=== PATIENT | female | born 1970 | race Caucasian/White ===

== ENCOUNTER 2018-12-06 14:45 | Inpatient (IN) | payer MEDICAID ==
[~2018-12-06] VITALS: Ht 165.1 cm; Wt 71.7 kg
[~2018-12-06 14:45] MED LIST: GABA-531 PO; LURA40 PO; TOPI25 PO
[2018-12-06] MEDS ORDERED: HALOPERIDOL 5 MG TABLET PO PRN (18:15)
[2018-12-06 18:17] VITALS: BP 100/65
[2018-12-06] MEDS ORDERED: ACETAMINOPHEN 325 MG TABLET PO PRN (18:45)
[2018-12-06] MEDS ORDERED: DOCUSATE SODIUM 100 MG CAPSULE PO PRN (18:45)
[2018-12-06] MEDS ORDERED: IBUPROFEN 400 MG TABLET PO PRN (18:45)
[2018-12-06] MEDS ORDERED: CloNIDine HCL 0.1 MG TABLET PO PRN (18:45)
[2018-12-06] MEDS ORDERED: LOPERAMIDE HCL 2 MG CAPSULE PO PRN (18:45)
[2018-12-06] MEDS ORDERED: ONDANSETRON HCL 4 MG TABLET PO PRN (18:45)
[2018-12-06] MEDS ORDERED: NICOTINE 14 MG/24 HOUR PATCH TD PRN (18:45)
[2018-12-06] MEDS ORDERED: PETROLATUM,WHITE 28 GM JELLY TP PRN (18:45)
[2018-12-06] MEDS ORDERED: MAG HYDROX/AL HYDROX/SIMETH ES 30 ML SUSPENSION UDCUP PO PRN (18:45)
[2018-12-06] MEDS ORDERED: ALBUTEROL SULFATE HFA 90 MCG/PUFF 8 GM INHALER IH PRN (18:45)
[2018-12-06] MEDS ORDERED: GuaiFENesin/D-METHORPHAN [SUGAR-FREE] 200-20MG/10 ML SYRUP UDCUP PO PRN (18:45)
[2018-12-06 18:46] VITALS: BP 111/60
[2018-12-06] MEDS: OLANZapine 5 MG TABLET PO SCH (21:01)
[2018-12-06] MEDS: GABAPENTIN 400 MG CAPSULE PO SCH (21:02)
[2018-12-06] MEDS: ZOLPIDEM TARTRATE 10 MG TABLET PO PRN (21:31)
[2018-12-07 01:02] VITALS: BP 130/78
[2018-12-07 08:21] VITALS: BP 100/55
[2018-12-07 08:25] LABS: BASOPHILS % (AUTO) 0.5 % (0.0-2.0); EOSINOPHILS % (AUTO) 3.5 % (1.0-6.0); HEMOGLOBIN 14.4 g/dL (12.0-16.0); LYMPHOCYTES # (AUTO) 3.4 K/uL (1.0-4.8); LYMPHOCYTES % (AUTO) 50.1 % (22.0-44.0); MEAN CORPUSCULAR HEMOGLOBIN 31.5 pg (26.0-34.0); MEAN CORPUSCULAR HGB CONC 32.7 G/dL (31.0-37.0); MEAN CORPUSCULAR VOLUME 96 fL (80-100); MONOCYTES # (AUTO) 0.4 K/uL (0.1-1.0); MONOCYTES % (AUTO) 6.1 % (2.0-9.0); NEUTROPHILS # (AUTO) 2.7 K/uL (1.8-7.7); NEUTROPHILS % (AUTO) 39.8 % (40.0-70.0); PLATELET COUNT (AUTO) 266 K/uL (150-450); RED BLOOD CELL COUNT(AUTO) 4.57 MIL/uL (4.00-5.20); RED CELL DISTRIBUTION WIDTH 14.1 % (11.5-14.5)
[2018-12-07 08:56] LABS: HEMOGLOBIN A1C 6.2 % (4.5-6.2)
[2018-12-07] MEDS: GABAPENTIN 400 MG CAPSULE PO SCH ×3 (09:00→16:15)
[2018-12-07 09:03] LABS: ANION GAP 6 mmol/L (8-16); CARBON DIOXIDE 30 mmol/L (22-29); CHLORIDE 105 mmol/L (98-107); CREATININE 0.84 mg/dL (0.60-1.30); GLUCOSE,RANDOM 114 mg/dL (70-110); POTASSIUM 4.7 mmol/L (3.5-5.1); SODIUM SERUM 141 mmol/L (136-145); UREA NITROGEN, BLOOD 23 mg/dL (7-18)
[2018-12-07 09:04] LABS: ALANINE AMINOTRANSFERASE 31 U/L (12-78); ALBUMIN 3.2 g/dL (3.4-5.0); ALKALINE PHOSPHATASE 81 U/L (46-116); ASPARTATE AMINOTRANSFERASE 16 U/L (15-37); BILIRUBIN,TOTAL 0.1 mg/dL (0.1-1.0); CALCIUM, TOTAL 8.7 mg/dL (8.8-10.5); CHOL/HDL RATIO 3.3 (3.9-5.7); CHOLESTEROL 154 mg/dL (131-200); GLOMERULAR FILTR. RATE CALC > 60 mL/min (>60); HCG,QUANTITATIVE 2 mIU/mL (0-6); HDL CHOLESTEROL 46 mg/dL (40-60); LDL CHOL (CALC.) 74 mg/dL (0-130); THYROID STIMULATING HORMONE 1.34 uIU/mL (0.36-3.74); TOTAL PROTEIN, SERUM 6.4 g/dL (6.4-8.2); TRIGLYCERIDES 171 mg/dL (15-150)
[2018-12-07] MEDS: OLANZapine 5 MG TABLET PO SCH ×2 (09:09→16:15)
[2018-12-07 13:30] VITALS: BP 108/70
[2018-12-07] MEDS: LORazepam 2 MG TABLET PO PRN (13:48)
[2018-12-07] MEDS: TOPIRAMATE 25 MG TABLET PO SCH (20:25)
[2018-12-08 02:21] VITALS: BP 99/57
[2018-12-08 08:20] VITALS: BP 110/72
[2018-12-08] MEDS: OLANZapine 5 MG TABLET PO SCH (08:55)
[2018-12-08] MEDS: GABAPENTIN 400 MG CAPSULE PO SCH ×3 (08:55→16:35)
[2018-12-08] MEDS: LORazepam 2 MG TABLET PO PRN (08:59)
[2018-12-08] MEDS: MAGNESIUM HYDROXIDE SUSPENSION 30 ML UDCUP PO PRN (12:31)
[2018-12-08] MEDS: OLANZapine 10 MG TABLET PO SCH (16:35)
[2018-12-08 20:19] VITALS: BP 106/72
[2018-12-08] MEDS: TOPIRAMATE 25 MG TABLET PO SCH (20:27)
[2018-12-09 04:12] VITALS: BP 101/61
[2018-12-09] MEDS: GABAPENTIN 400 MG CAPSULE PO SCH ×3 (08:26→16:16)
[2018-12-09] MEDS: OLANZapine 10 MG TABLET PO SCH (08:26)
[2018-12-09] MEDS: LORazepam 2 MG TABLET PO PRN ×2 (08:29→18:39)
[2018-12-09] MEDS: MUPIROCIN CALCIUM 2% 22 GM OINTMENT NASAL SCH ×2 (12:31→16:16)
[2018-12-09] MEDS: OLANZapine 7.5 MG TABLET PO SCH (16:16)
[2018-12-09 16:27] VITALS: BP 115/71
[2018-12-09] MEDS: TOPIRAMATE 25 MG TABLET PO SCH (20:22)
[2018-12-10 04:26] VITALS: BP 109/69
[2018-12-10 08:51] LABS: APPEARANCE,URINE CLEAR (CLEAR); BILIRUBIN,URINE NEGATIVE (NEGATIVE); GLUCOSE, URINE (UA) NEGATIVE (NEGATIVE); KETONES,URINE NEGATIVE (NEGATIVE); LEUKOCYTE ESTERASE ,URINE NEGATIVE (NEGATIVE); NITRATE,URINE NEGATIVE (NEGATIVE); OCCULT BLOOD,URINE NEGATIVE (NEGATIVE); PROTEIN,URINE NEGATIVE (NEGATIVE); UROBILINOGEN,URINE 0.2 mg/dL (<=1.0)
[2018-12-10] MEDS: MUPIROCIN CALCIUM 2% 22 GM OINTMENT NASAL SCH ×2 (08:56→17:59)
[2018-12-10 08:57] LABS: AMPHET/METH SCREEN,URINE NEGATIVE (NEGATIVE); BARBITURATE SCREEN, URINE NEGATIVE (NEGATIVE); BENZODIAZEPINES SCREEN,URINE NEGATIVE (NEGATIVE); CANNABINOID SCREEN,URINE NEGATIVE (NEGATIVE); COCAINE SCREEN,URINE NEGATIVE (NEGATIVE); METHADONE SCREEN, URINE NEGATIVE (NEGATIVE); OPIATE SCREEN,URINE NEGATIVE (NEGATIVE)
[2018-12-10] MEDS: OLANZapine 7.5 MG TABLET PO SCH ×2 (08:57→17:59)
[2018-12-10] MEDS: MAGNESIUM HYDROXIDE SUSPENSION 30 ML UDCUP PO PRN (08:57)
[2018-12-10 08:58] LABS: PHENCYCLIDINE SCREEN,URINE NEGATIVE (NEGATIVE)
[2018-12-10] MEDS: GABAPENTIN 400 MG CAPSULE PO SCH ×3 (09:00→17:59)
[2018-12-10] MEDS: FLUoxetine HCL 20 MG CAPSULE PO SCH (10:45)
[2018-12-10 16:35] VITALS: BP 115/81
[2018-12-10] MEDS: ZOLPIDEM TARTRATE 10 MG TABLET PO PRN (20:18)
[2018-12-10] MEDS: TOPIRAMATE 25 MG TABLET PO SCH (20:39)
[2018-12-11 06:27] VITALS: BP 111/67
[2018-12-11] MEDS: OLANZapine 7.5 MG TABLET PO SCH ×2 (08:58→16:11)
[2018-12-11] MEDS: GABAPENTIN 400 MG CAPSULE PO SCH ×3 (08:58→16:10)
[2018-12-11] MEDS: FLUoxetine HCL 20 MG CAPSULE PO SCH (08:58)
[2018-12-11] MEDS: MUPIROCIN CALCIUM 2% 22 GM OINTMENT NASAL SCH ×2 (08:59→16:18)
[2018-12-11 16:21] VITALS: BP 118/74
[2018-12-11] MEDS: TOPIRAMATE 25 MG TABLET PO SCH (20:43)
[2018-12-12 05:48] VITALS: BP 111/77
[2018-12-12 08:23] VITALS: BP 107/59
[2018-12-12] MEDS: MUPIROCIN CALCIUM 2% 22 GM OINTMENT NASAL SCH (08:55)
[2018-12-12] MEDS: FLUoxetine HCL 20 MG CAPSULE PO SCH (08:55)
[2018-12-12] MEDS: GABAPENTIN 400 MG CAPSULE PO SCH ×2 (08:55→13:01)
[2018-12-12] MEDS: OLANZapine 7.5 MG TABLET PO SCH (08:55)
[2018-12-12] MEDS ORDERED: FLUO-191 PO (11:03)
[2018-12-12] MEDS ORDERED: OLAN7.5T2 PO (11:03)
== END 2018-12-12 15:00 | disposition home or self-care (01) | DRG 750 ==
LOC: B3A 18:00
PROVIDERS: ADMIT Psychiatry & Neurology Psychiatry; ATTEND Psychiatry & Neurology Psychiatry
DX: F25.9 Schizoaffective disorder, unspecified (principal); G40.909 Epilepsy, unspecified, not intractable, without status epilepticus; E78.5 Hyperlipidemia, unspecified; J44.9 Chronic obstructive pulmonary disease, unspecified; K59.00 Constipation, unspecified; F15.90 Other stimulant use, unspecified, uncomplicated; Z79.899 Other long term (current) drug therapy
CPT/HCPCS: 80307; 83036; 84443; 87081; Q0162